=== PATIENT | male | born 1965 | race Two or more races ===

== ENCOUNTER 2024-08-21 20:34 | Emergency (ER) | payer MEDICAID, OTHER ==
[~2024-08-21] VITALS: Ht 182.9 cm; Wt 80.0 kg
--- NOTE | 2024-08-21 20:56 | ED.PDOC ---
HPI (NEURO) HPI Comments 58-year-old male came to the ER via EMS due to seizures. Patient does have a history of seizures, takes his Keppra as prescribed, and last seizure episode was 8 months ago. Had a witnessed a seizure earlier today at home, tonic clonic lasting about 2-3 minutes. Noted also oral trauma at upper lip. Chief Complaint: Seizure Time Seen by MD: 20:55 Reviewed Notes: Nurses Notes Information Source: Patient Mode of Arrival: EMS Severity: Moderate Dizziness/Weakness Severity: Unable to do activities Headache Severity: Moderate Timing: Minutes Duration: Minutes Prehospital treatment: None Seizure Quality: Tonic-clonic Headache Quality: Throbbing, Aching Headache Location: Generalized Weakness Location: Generalized Numbness Location: Generalized Seizure Location: Generalized Onset: With light exertion Circumstances: Spontaneous Symptoms: Weakness Before: Normal During: LOC After: Confusion, Headache History of: Seizure Disorder Associated Signs and Symptoms: Headache, Weakness Past Medical History PAST MEDICAL HISTORY: Seizures Surgical History: Denies all surgeries Family History Family History: Reviewed,noncontributory to illness Social History Smoker: Non-Smoker Alcohol: Denies ETOH Use Drugs: Denies Drug Use Lives In: Home Unable to Obtain due to: Altered Mental Status, Other (Patient postictal) Physical Exam General Appearance: Mild Distress, Normal HEENT: Normal ENT Inspection, Pharynx Normal, TMs Normal Neck: Full Range of Motion, Non-Tender, Normal, Normal Inspection Respiratory: Chest Non-Tender, Lungs Clear, No Accessory Muscle Use, No Respiratory Distress, Normal Breath Sounds Cardiovascular: No Edema, No JVD, No Murmur, No Gallop, Normal Peripheral Pulses, Regular Rate/Rhythm Breast Exam: Deferred Gastrointestinal: No Organomegaly, Non Tender, No Pulsatile Mass, Normal Bowel Sounds, Soft Genitalia: Deferred Pelvic: Deferred Rectal: Deferred Extremities: No calf tenderness, Normal capillary refill, Normal inspection, Normal range of motion, Non-tender, No pedal edema Musculoskeletal : Apperance: Normal Neurologic: Alert, advertising statistical clerk II-XII nml as Tested, No Motor Deficits, Normal Affect, Normal Mood, No Sensory Deficits Cerebellar Function: Normal Reflexes: Normal Skin: Dry, Normal Color, Warm Lymphatic: No Adenopathy EKG EKG : Pulse Rate (adult): 124 Cardiac Rhythm: ST Was a procedure done? Was a procedure done?: No Differential Diagnosis (SZ) Seizure: Psychogenic Seizure, CVA/TIA, Idiopathic, Syncope, Encephalopathy, Epilepsy-Break Through, Epilepsy-Status X-Ray, Labs, Meds, VS Vital Signs Date Time Temp Pulse Resp B/P (MAP) Pulse Ox O2 Delivery O2 Flow Rate FiO2 08/21/24 22:18 92 14 96 Room Air* 0 21 21 08/21/24 21:00 98 19 117/89 (98) 94 08/21/24 20:58 124 08/21/24 20:41 98.1 120 16 114/65 (81) 96 08/21/24 20:39 124 Lab Test 08/21/24 22:28 08/21/24 22:00 08/21/24 21:21 Range/Units Troponin I High Sensitivity Pending 4 </=54 ng/L Urine Opiates Screen Neg NEGATIVE Urine Fentanyl Screen Neg NEGATIVE Urine Barbiturates Screen Neg NEGATIVE Urine Phencyclidine Screen Neg NEGATIVE Urine Amphetamines Screen Neg NEGATIVE Urine Benzodiazepines Screen Neg NEGATIVE Urine Cocaine Screen Neg NEGATIVE Urine Cannabinoids Screen Pos NEGATIVE White Blood Count 6.3 4.4-10.8 10^3/uL Red Blood Count 4.97 4.5-5.90 10^6/uL Hemoglobin 15.1 13.5-17.5 g/dL Hematocrit 45.4 41.0-53.0 % Mean Corpuscular Volume 91.3 80.0-100.0 fL Mean Corpuscular Hemoglobin 30.4 28.0-32.0 pg Mean Corpuscular Hemoglobin Concent 33.3 32.0-36.0 g/dL Red Cell Distribution Width 15.1 H 11.8-14.3 % Platelet Count 211 140-450 10^3/uL Mean Platelet Volume 6.8 L 6.9-10.8 fL Neutrophils (%) (Auto) 61.1 37.0-80.0 % Lymphocytes (%) (Auto) 28.1 10.0-50.0 % Monocytes (%) (Auto) 8.6 0.0-12.0 % Eosinophils (%) (Auto) 1.6 0.0-7.0 % Basophils (%) (Auto) 0.6 0.0-2.0 % Neutrophils # (Auto) 3.8 1.6-8.6 10 ^3/uL Lymphocytes # (Auto) 1.8 0.4-5.4 10 ^3/uL Monocytes # (Auto) 0.5 0-1.3 10 ^3/uL Eosinophils # (Auto) 0.1 0-0.8 10 ^3/uL Basophils # (Auto) 0 0-0.2 10 ^3/uL Nucleated Red Blood Cells 0.1 % Sodium Level 144 136-145 mmol/L Potassium Level 4.0 3.5-5.1 mmol/L Chloride Level 108 H 98-107 mmol/L Carbon Dioxide Level 24 20-31 mmol/L Anion Gap 12 5-15 Blood Urea Nitrogen 22 9-23 mg/dL Creatinine 2.09 H 0.700-1.30 mg/dL Glomerular Filtration Rate Calc 36 >90 mL/min BUN/Creatinine Ratio 10.5 10.0-20.0 Serum Glucose 119 H 74-106 mg/dL Calcium Level 10.4 8.7-10.4 mg/dL Total Bilirubin 0.4 0.2-1.0 mg/dL Aspartate Amino Transferase (AST) 28 13-40 U/L Alanine Aminotransferase (ALT) 42 H 7-40 U/L Alkaline Phosphatase 119 H 46-116 U/L Total Protein 7.4 5.7-8.2 g/dL Albumin 4.7 3.2-4.8 g/dL Plasma/Serum Blood Alcohol < 3.0 <10 mg/dL Current Medications Medications (Trade) Dose Ordered Sig/Toy Route Start Time Stop Time Status Last Admin Lorazepam (Ativan Inj) 1 mg ONCE ONCE IV 08/21/24 21:00 08/21/24 21:02 DC 08/21/24 21:47 Sodium Chloride 1,000 ml @ 500 mls/hr Q2H ONCE IVB 08/21/24 21:00 08/21/24 22:59 08/21/24 21:00 Levetiracetam (Keppra Tablet) 500 mg ONCE ONCE PO 08/21/24 21:30 08/21/24 21:31 DC 08/21/24 21:46 CT BRAIN WITHOUT CONTRAST HISTORY: Seizure TECHNIQUE: Axial scans were obtained from the skull base through the vertex without contrast. Sagittal and coronal reformats were generated. One or more of the following radiation dose reduction techniques were used for this examination: automated exposure control, adjustment of the mA and/or kV according to patient size, use of iterative reconstruction technique. COMPARISON: None FINDINGS: No acute intracranial hemorrhage or evidence of large vessel territorial infa rction identified at this time. No midline shift. The basilar cisterns are patent. Hernandez-white differentiation appears relatively preserved. The visualized paranasal sinuses and mastoid air cells are clear. No grossly displaced calvarial abnormalities identified. IMPRESSION: No acute intracranial findings. If there is persistent clinical concern, follow- up MRI may be obtained to further evaluate. CBC is normal. UDS is positive for marijuana The patient was loaded with Ativan 1 mg IV and Keppra 500 mg IV. He is to follow up with his primary care physician/neurologist in 1-2 days. His seizure was shortly have except for a busted lip uncomplicated. Time of 1ST Reevaluation: 20:53 Reevaluation 1ST: Unchanged Patient Education/Counseling: Diagnosis, Treatment Family Education/Counseling: No Family Present Departure 1 Departure Time of Disposition: 22:30 Impression: Primary Impression: Seizure Disposition: 01 HOME / SELF CARE / HOMELESS Condition: Stable Additional Instructions: Reassessed patient, vital signs stable. Denies any new symptoms. Patient is able to tolerate PO and ambulate/be mobile at their baseline without concern. Risks and benefits of all medications given or prescribed, if any, discussed. All lab work, imaging and diagnostic studies were reviewed by me. The patient was counseled extensively on my clinical impression, diagnosis, expected course of the disease, and plan, including their follow-up care. Will discharge patient. Patient instructed to follow up with Primary Care Physician within 24-48 hours. Strict return precautions given for further exacerbation of symptoms or for new symptoms. The patient was given the opportunity to ask questions and all questions were answered by myself and the nursing/tech staff. Patient is in agreement with the care plan. The patient verbally expressed understanding of the discharge instructions, including the reasons to return to the Emergency Department. e-Prescriptions Levetiracetam (Keppra) 1,000 Mg Tab 1500 MG PO BID, #60 TAB Prov: SUSAN MCCRACKEN MD 08/21/24 Discharged With: Relative Critical Care Note Critical Care Time?: Yes (35 min-critical care time only) Stability Stability form required: No Heart Score Heart Score: Heart Score Response (Comments) Value History N/A 0 EKG N/A 0 Age N/A 0 Risk Factors N/A 0 Troponin N/A 0 Total 0 I personally scribed for MCCRACKEN,SUSAN D MD ([email or web address]) on 08/21/24 at 20:56. Electronically submitted by Louis Gar [facility] I personally scribed for SUSAN MCCRACKEN MD (MARVIN) on 08/21/24 at 20:58. Electronically submitted by Louis Gar ([email or web address]). I personally scribed for SUSAN MCCRACKEN MD (MARVIN) on 08/21/24 at 21:52. Electronically submitted by Louis Gar ([email or web address]). SUSAN MCCRACKEN MD Aug 21, 2024 20:56
[2024-08-21] MEDS: SODIUM CHLORIDE 0.9% 1,000 ML IVB ONE (21:00)
--- NOTE | 2024-08-21 21:34 | DVH ---
CT BRAIN WITHOUT CONTRAST HISTORY: Seizure TECHNIQUE: Axial scans were obtained from the skull base through the vertex without contrast. Sagitta l and coronal reformats were generated. One or more of the following radiation dose reduction techniq ues were used for this examination: automated exposure control, adjustment of the mA and/or kV accord ing to patient size, use of iterative reconstruction technique. COMPARISON: None FINDINGS: No acute intracranial hemorrhage or evidence of large vessel territorial infarction identified at thi s time. No midline shift. The basilar cisterns are patent. Hernandez-white differentiation appears relati vely preserved. The visualized paranasal sinuses and mastoid air cells are clear. No grossly displaced calvarial abno rmalities identified. IMPRESSION: No acute intracranial findings. If there is persistent clinical concern, follow-up MRI may be obtaine d to further evaluate.
[2024-08-21] MEDS: levETIRAcetam 500 MG TAB PO ONE (21:46)
[2024-08-21 21:47] LABS: Basophils # (auto) 0 10 ^3/uL (0-0.2); Basophils % (auto) 0.6 % (0.0-2.0); Eosinophils # (auto) 0.1 10 ^3/uL (0-0.8); Eosinophils % (auto) 1.6 % (0.0-7.0); Hematocrit 45.4 % (41.0-53.0); Hemoglobin 15.1 g/dL (13.5-17.5); Lymphocytes # (auto) 1.8 10 ^3/uL (0.4-5.4); Lymphocytes % (auto) 28.1 % (10.0-50.0); Mean Corpuscular Hemoglobin 30.4 pg (28.0-32.0); Mean Corpuscular Hgb Conc. 33.3 g/dL (32.0-36.0); Mean Corpuscular Volume 91.3 fL (80.0-100.0); Monocytes # (auto) 0.5 10 ^3/uL (0-1.3); Monocytes % (auto) 8.6 % (0.0-12.0); Neutrophils # (auto) 3.8 10 ^3/uL (1.6-8.6); Neutrophils % (auto) 61.1 % (37.0-80.0); Nucleated Red Blood Cells % 0.1 %; Platelet Count (auto) 211 10^3/uL (140-450); Red Blood Cells 4.97 10^6/uL (4.5-5.90); Red Cell Distribution Width 15.1 % (11.8-14.3); White Blood Cell 6.3 10^3/uL (4.4-10.8)
[2024-08-21] MEDS: LORazepam 2MG/ML-1ML VIAL IV ONE (21:47)
[2024-08-21 22:09] LABS: Albumin 4.7 g/dL (3.2-4.8); Anion Gap 12 (5-15); Aspartate Aminotransferase 28 U/L (13-40); BUN/Creatinine Ratio 10.5 (10.0-20.0); Blood Urea Nitrogen 22 mg/dL (9-23); Calcium 10.4 mg/dL (8.7-10.4); Carbon Dioxide 24 mmol/L (20-31); Sodium 144 mmol/L (136-145)
[2024-08-21 22:10] LABS: Bilirubin, Total 0.4 mg/dL (0.2-1.0); Total Protein 7.4 g/dL (5.7-8.2)
[2024-08-21 22:14] LABS: Alanine Aminotransferase 42 U/L (7-40); Alkaline Phosphatase 119 U/L (46-116); Blood Alcohol < 3.0 mg/dL (<10); Chloride 108 mmol/L (98-107); Glucose 119 mg/dL (74-106)
[2024-08-21 22:18] VITALS: PULSE 92; RESP 14; O2SAT 96
[2024-08-21 22:30] VITALS: BP 119/81; PULSE 115; RESP 23; O2SAT 91
[2024-08-21 22:47] LABS: Cannabinoid Screen, Urine Pos (NEGATIVE)
[2024-08-21 22:48] LABS: Amphetamine Screen, Urine Neg (NEGATIVE); Barbiturate Scree,Urine Neg (NEGATIVE); Benzodiazephine Screen, Urine Neg (NEGATIVE); Cocaine Screen, Urine Neg (NEGATIVE); Opiate Scree,Urine Neg (NEGATIVE); Phencyclidine Screen, Urine Neg (NEGATIVE)
[2024-08-21] MEDS ORDERED: LEVE100012 PO (22:53)
--- NOTE | 2024-08-22 06:12 | ECG ---
[facility] Test Date: 2024-08-21 Test Time: 20:39:52 Pat Name: RONNELL TSAI Department: ED Room: Gender: M Log Turner: IVON : 1965 Requested By: SUSAN MCCRACKEN Order Number: [id number] Reading MD: Moi Almanza Measurements Intervals [place] Rate: 124 P: 57 SD: 163 QRS: 53 QRSD: 82 T: 30 QT: 309 QTc: 444 Interpretive Statements Sinus tachycardia Borderline T wave abnormalities Electronically Signed On 08-22-2024 8:38:40 PST by Moi Almanza Please click the below link to view image of tracing.
== END 2024-08-21 23:01 | disposition home or self-care (01) ==
LOC: EDBD 20:34 → ER 20:34
DX: R56.9 Unspecified convulsions (principal)
CPT/HCPCS: 36415; 70450; 80053; 80307; 80320; 84484; 85025; 93005; 96361; 96374; 99291; J2060; J7030